=== PATIENT | female | born 1955 | race Caucasian/White ===

== ENCOUNTER 2016-03-28 09:04 | Day surgery (SDC) | payer OTHER ==
[2016-03-28] VITALS (11 sets, daily range): BP systolic 98–132; BP diastolic 46–83; PULSE 82–98; RESP 16–21; Ht 165.1 cm; Wt 82.4 kg
[~2016-03-28] VITALS: Ht 165.1 cm; Wt 82.4 kg
[~2016-03-28 09:04] MED LIST: ETOMIDATE 20 MG INJ ONE
[2016-03-28] MEDS ORDERED: MIDAZOLAM 1 MG/ML 2 ML INJ ONE (11:04)
[2016-03-28] MEDS ORDERED: FENTAnyl 50 MCG/ML VIAL ONE (11:04)
[2016-03-28] MEDS ORDERED: LIDOCAINE 1% (MDV) 20 ML INJ ONE (11:10)
--- NOTE | 2016-03-28 13:10 | GILP ---
DATE OF PROCEDURE: PROCEDURE: Percutaneous endoscopic gastrostomy and removal of the G-tube. 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 The risks of the procedure, related and unrelated complications, anesthetic risks, alternatives were thoroughly discussed with the patient's brother, especially in view of her multiple comorbidit ies. He understood, agreed, consented for it. DESCRIPTION OF PROCEDURE: The patient was brought to the GI lab, sedated by the anesthesiologist. After optimal sedation, scope was passed through the small mouthpiece into the stomach. Internal bu mper was not identified. The internal stoma appeared to have sealed completely. With the help of jessica nuñez, we poked the stoma and finally managed to pass a guidewire with much ease from the external st lazaro. Guidewire was snared with transendoscopically passed snare, and the whole procedure was comple ce by modified Ponsky technique. Before the insertion of the guidewire, I had pulled out of the G- tube because it was in the subcutaneous tissue. The patient was rescoped. The position of the inte rnal bumper confirmed. External bumper was secured. She tolerated the procedure very well. IMPRESSION: 1. Successful removal of the G-tube from the subcutaneous tissue. 2. 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 PLAN: Resume feeding through the G-tube. Abdominal binder so that the G-tube does not get pulled o ut. Dictated By: CHASTITY MOTA/CHRISTINE Conf#: [id number] DID#: [id number] CC: SARITA BACH MD;*EndCC*
== END 2016-03-28 21:00 | disposition short-term general hospital (02) ==
LOC: SDS 09:04
PROVIDERS: ATTEND Internal Medicine Gastroenterology
DX: Z43.1 Encounter for attention to gastrostomy (principal); I10 Essential (primary) hypertension; E78.5 Hyperlipidemia, unspecified; Z86.718 Personal history of other venous thrombosis and embolism; E03.9 Hypothyroidism, unspecified; R13.10 Dysphagia, unspecified; Z86.73 Personal history of transient ischemic attack (TIA), and cerebral infarction without residual deficits; E11.9 Type 2 diabetes mellitus without complications; I42.9 Cardiomyopathy, unspecified; Z93.0 Tracheostomy status
CPT/HCPCS: 43760; 94002; J1644; J2250; J3010